=== PATIENT | male | born 1945 | race Caucasian/White ===

== ENCOUNTER 2021-03-30 04:33 | Inpatient (IN) | payer MEDICARE, OTHER ==
[~2021-03-30] VITALS: Ht 180.3 cm; Wt 129.4 kg
[2021-03-30] MEDS ORDERED: XARELTO20 MG PO (11:07)
[2021-03-30] MEDS ORDERED: LASIX40 MG PO (11:08)
[2021-03-30] MEDS ORDERED: HYDROXYZINE HCL25 MG PO (11:08)
[2021-03-30] MEDS ORDERED: HYDROCODON-ACE1 EAC6 PO (11:09)
[2021-03-30] MEDS ORDERED: PROAIR HFA8.5 GM INH (11:09)
[2021-03-30] MEDS ORDERED: ASMANEX HFA13 GM INH (11:11)
[2021-03-30] MEDS ORDERED: STIOLTO RESPIMAT4 GM INH (11:11)
[2021-03-30] MEDS ORDERED: METHOTREXATE T2.5 MG PO (11:12)
[2021-03-30] MEDS ORDERED: FOLIC ACID 1 MG1 MG PO (11:12)
[2021-03-30] MEDS ORDERED: CLARITIN10 MG PO (11:13)
[2021-03-30] MEDS ORDERED: LIPITOR40 MG PO (11:13)
[2021-03-30] MEDS ORDERED: NITROSTAT0.4 MG SL (11:14)
[2021-03-30] MEDS ORDERED: KENALOG CR 0.0215 GM TOP (13:01)
[2021-03-30] MEDS ORDERED: LINZESS145 MCG PO (13:04)
[2021-03-31 03:17] LABS: HEMOGLOBIN 14.4 gm/dl (14.0-17.5); RED BLOOD COUNT 4.08 M/UL (4.20-5.50); WHITE BLOOD COUNT 11.3 K/UL (4.5-11.0)
[2021-03-31 03:29] LABS: BUN/CREATININE RATIO 21 (0-10)
--- NOTE | 2021-03-31 08:27 | NUR ---
SPOKE WITH [facility] RE TRANSPORTING PT TO [facility] AND DISPATCH STATES WILL HAVE TO CALL BACK
[2021-04-01 03:44] LABS: HEMOGLOBIN 14.1 gm/dl (14.0-17.5); RED BLOOD COUNT 4.02 M/UL (4.20-5.50)
[2021-04-01 03:46] LABS: WHITE BLOOD COUNT 16.9 K/UL (4.5-11.0)
[2021-04-01 04:35] LABS: BUN/CREATININE RATIO 27 (0-10)
[2021-04-02 05:12] LABS: HEMOGLOBIN 14.6 gm/dl (14.0-17.5); RED BLOOD COUNT 4.39 M/UL (4.20-5.50)
[2021-04-02 05:30] LABS: BUN/CREATININE RATIO 33 (0-10)
[2021-04-03 04:56] LABS: HEMOGLOBIN 15.3 gm/dl (14.0-17.5); RED BLOOD COUNT 4.38 M/UL (4.20-5.50)
[2021-04-03 04:59] LABS: WHITE BLOOD COUNT 12.4 K/UL (4.5-11.0)
[2021-04-03 05:14] LABS: BUN/CREATININE RATIO 28 (0-10)
[2021-04-04 07:24] LABS: RED BLOOD COUNT 4.36 M/UL (4.20-5.50); WHITE BLOOD COUNT 15.1 K/UL (4.5-11.0)
[2021-04-04 07:38] LABS: BUN/CREATININE RATIO 33 (0-10)
[2021-04-05 04:16] LABS: RED BLOOD COUNT 4.51 M/UL (4.20-5.50); WHITE BLOOD COUNT 15.6 K/UL (4.5-11.0)
[2021-04-05 04:29] LABS: BUN/CREATININE RATIO 27 (0-10)
[2021-04-06 10:22] LABS: HEMOGLOBIN 16.9 gm/dl (14.0-17.5); RED BLOOD COUNT 4.69 M/UL (4.20-5.50); WHITE BLOOD COUNT 19.1 K/UL (4.5-11.0)
[2021-04-06 10:55] LABS: BUN/CREATININE RATIO 31 (0-10)
[2021-04-06] MEDS ORDERED: NYSTOP60 GM EXT (18:06)
[2021-04-06] MEDS ORDERED: LOTRIMIN CREAM15 GM TOP (18:06)
[2021-04-06] MEDS ORDERED: MEDROL DOSEPAK 24 MG PO (18:06)
[2021-04-06] MEDS ORDERED: DOXYCYCLINE HY100 M2 PO (18:06)
== END 2021-04-06 19:50 | disposition home or self-care (01) | DRG 291 ==
LOC: PROG CARE 04:33 → MED SURG 4 10:24 → PROG CARE 10:24 → MED SURG 4 04-01 14:41
PROVIDERS: Internal Medicine; Physician Assistant Medical; ADMIT Internal Medicine
PROC: B24BZZ4 Ultrasonography of Heart with Aorta, Transesophageal (ICD-10-PCS; principal; 2021-03-30)
DX: I11.0 Hypertensive heart disease with heart failure (principal); J96.21 Acute and chronic respiratory failure with hypoxia; J96.01 Acute respiratory failure with hypoxia; J96.22 Acute and chronic respiratory failure with hypercapnia; J44.1 Chronic obstructive pulmonary disease with (acute) exacerbation; E66.2 Morbid (severe) obesity with alveolar hypoventilation; E87.4 Mixed disorder of acid-base balance; I50.33 Acute on chronic diastolic (congestive) heart failure; Z20.822 Contact with and (suspected) exposure to COVID-19; I25.10 Atherosclerotic heart disease of native coronary artery without angina pectoris; K21.9 Gastro-esophageal reflux disease without esophagitis; M06.9 Rheumatoid arthritis, unspecified; I45.10 Unspecified right bundle-branch block; E78.5 Hyperlipidemia, unspecified; N40.0 Benign prostatic hyperplasia without lower urinary tract symptoms; F43.10 Post-traumatic stress disorder, unspecified; I07.1 Rheumatic tricuspid insufficiency; F17.210 Nicotine dependence, cigarettes, uncomplicated; I25.2 Old myocardial infarction; Z88.6 Allergy status to analgesic agent; Z88.8 Allergy status to other drugs, medicaments and biological substances; Z79.82 Long term (current) use of aspirin; Z79.01 Long term (current) use of anticoagulants; Z99.81 Dependence on supplemental oxygen; Z68.35 Body mass index [BMI] 35.0-35.9, adult
CPT/HCPCS: ECHO; 36415; 36600; 71045; 71046; 80048; 80053; 82607; 82746; 82803; 83605; 83735; 83880; 84439; 84443; 85025; 85027; 85652; 93306; 94640; 94660; 94664; 94760; 97116-GP-CQ; 97161; J0696; J1940; J2930

== ENCOUNTER 2021-04-21 05:29 | Inpatient (IN) | payer MEDICARE, OTHER ==
[~2021-04-21] VITALS: Ht 180.3 cm; Wt 122.9 kg
[~2021-04-21 05:29] MED LIST: ASMANEX HFA13 GM INH; CLARITIN10 MG PO; DOXYCYCLINE HY100 M2 PO; FOLIC ACID 1 MG1 MG PO; HYDROCODON-ACE1 EAC6 PO; HYDROXYZINE HCL25 MG PO; KENALOG CR 0.0215 GM TOP; LASIX40 MG PO; LINZESS145 MCG PO; LIPITOR40 MG PO; LOTRIMIN CREAM15 GM TOP; MEDROL DOSEPAK 24 MG PO; METHOTREXATE T2.5 MG PO; NITROSTAT0.4 MG SL; NYSTOP60 GM EXT; PROAIR HFA8.5 GM INH; STIOLTO RESPIMAT4 GM INH; XARELTO20 MG PO
[2021-04-21 06:44] LABS: HEMOGLOBIN 14.6 gm/dl (14.0-17.5); RED BLOOD COUNT 4.16 M/UL (4.20-5.50); WHITE BLOOD COUNT 8.8 K/UL (4.5-11.0)
[2021-04-21 07:18] LABS: BUN/CREATININE RATIO 16 (0-10)
[2021-04-21] MEDS ORDERED: POTASSIUM CHLO20 ME1 PO (16:18)
[2021-04-22 05:53] LABS: RED BLOOD COUNT 3.79 M/UL (4.20-5.50); WHITE BLOOD COUNT 9.3 K/UL (4.5-11.0)
[2021-04-23 05:08] LABS: HEMOGLOBIN 12.2 gm/dl (14.0-17.5); RED BLOOD COUNT 3.54 M/UL (4.20-5.50); WHITE BLOOD COUNT 9.5 K/UL (4.5-11.0)
[2021-04-23 05:37] LABS: BUN/CREATININE RATIO 31 (0-10)
[2021-04-24 06:27] LABS: HEMOGLOBIN 12.6 gm/dl (14.0-17.5); RED BLOOD COUNT 3.66 M/UL (4.20-5.50); WHITE BLOOD COUNT 8.7 K/UL (4.5-11.0)
[2021-04-24 06:57] LABS: BUN/CREATININE RATIO 26 (0-10)
[2021-04-25 03:41] LABS: HEMOGLOBIN 13.2 gm/dl (14.0-17.5); RED BLOOD COUNT 3.83 M/UL (4.20-5.50); WHITE BLOOD COUNT 9.2 K/UL (4.5-11.0)
[2021-04-25 03:57] LABS: BUN/CREATININE RATIO 25 (0-10)
--- NOTE | 2021-04-25 11:06 | NUR ---
PATIENT CALLED STATING SHE HAS SCABES AND FEELS THE PATIENT DOES TOO. CALLED MD GARCIA WITH THIS INFORMATION
[2021-04-26 03:11] LABS: HEMOGLOBIN 13.5 gm/dl (14.0-17.5); RED BLOOD COUNT 3.91 M/UL (4.20-5.50); WHITE BLOOD COUNT 8.9 K/UL (4.5-11.0)
[2021-04-26 03:37] LABS: BUN/CREATININE RATIO 28 (0-10)
--- NOTE | 2021-04-26 16:34 | NUR ---
PATIENT AWAKENS HR 120, B/P 144/90. CALL MD GARCIA FOR MEDICATION TO TREAT. METOPROLOL 25MG X 1 GIVEN. WILL CONTINUE TO MONITOR
[2021-04-27 05:45] LABS: HEMOGLOBIN 13.6 gm/dl (14.0-17.5); RED BLOOD COUNT 3.9 M/UL (4.20-5.50); WHITE BLOOD COUNT 11.3 K/UL (4.5-11.0)
[2021-04-27 06:48] LABS: BUN/CREATININE RATIO 29 (0-10)
[2021-04-27] MEDS ORDERED: ASPIRIN EC81 MG PO (12:37)
[2021-04-27] MEDS ORDERED: ACETAZOLAMIDE250 MG PO (12:37)
[2021-04-27] MEDS ORDERED: LOPRESSOR 25 MG25 MG PO (12:37)
[2021-04-27] MEDS ORDERED: LOTRISONE CREAM15 GM TOP (12:37)
[2021-04-27] MEDS ORDERED: MEDROL4 MG PO (12:37)
--- NOTE | 2021-04-27 13:53 | NUR ---
REPORT CALLED TO SORIN TRIANA FOR TRANSFER TO [id number]
[2021-04-28 06:46] LABS: HEMOGLOBIN 13.4 gm/dl (14.0-17.5); RED BLOOD COUNT 3.86 M/UL (4.20-5.50)
[2021-04-28 06:48] LABS: WHITE BLOOD COUNT 16.7 K/UL (4.5-11.0)
[2021-04-28 07:19] LABS: BUN/CREATININE RATIO 25 (0-10)
[2021-04-29 06:54] LABS: HEMOGLOBIN 13.5 gm/dl (14.0-17.5); RED BLOOD COUNT 3.9 M/UL (4.20-5.50); WHITE BLOOD COUNT 20.4 K/UL (4.5-11.0)
[2021-04-29 07:26] LABS: BUN/CREATININE RATIO 24 (0-10)
[2021-04-30 05:27] LABS: HEMOGLOBIN 13.6 gm/dl (14.0-17.5); RED BLOOD COUNT 3.96 M/UL (4.20-5.50); WHITE BLOOD COUNT 16.1 K/UL (4.5-11.0)
[2021-04-30 05:57] LABS: BUN/CREATININE RATIO 25 (0-10)
[2021-04-30] MEDS ORDERED: ACETAZOLAMIDE250 MG PO (10:53)
[2021-04-30] MEDS ORDERED: FAMOTIDINE20 MG PO (10:53)
[2021-04-30] MEDS ORDERED: LOPRESSOR 25 MG25 MG PO (10:53)
[2021-04-30] MEDS ORDERED: LANTISEPTIC TP (11:02)
[2021-04-30] MEDS ORDERED: MILLIPRED5 MG PO (11:02)
[2021-04-30] MEDS ORDERED: IPRAT-ALBUT 0.5-3 ML NEB (11:02)
== END 2021-04-30 14:20 | disposition home or self-care (01) | DRG 189 ==
LOC: ER1 05:29 → CDU 10:23 → M/S 10:23 → PROG CARE 04-24 11:10 → M/S 04-27 14:34
PROVIDERS: Family Medicine; Internal Medicine; Physician Assistant; ADMIT Internal Medicine
DX: J96.21 Acute and chronic respiratory failure with hypoxia (principal); N17.9 Acute kidney failure, unspecified; I50.32 Chronic diastolic (congestive) heart failure; I48.92 Unspecified atrial flutter; J44.1 Chronic obstructive pulmonary disease with (acute) exacerbation; E66.2 Morbid (severe) obesity with alveolar hypoventilation; J96.22 Acute and chronic respiratory failure with hypercapnia; I25.10 Atherosclerotic heart disease of native coronary artery without angina pectoris; E87.5 Hyperkalemia; I11.0 Hypertensive heart disease with heart failure; F17.210 Nicotine dependence, cigarettes, uncomplicated; F43.10 Post-traumatic stress disorder, unspecified; E78.5 Hyperlipidemia, unspecified; I07.1 Rheumatic tricuspid insufficiency; Z20.822 Contact with and (suspected) exposure to COVID-19; K21.9 Gastro-esophageal reflux disease without esophagitis; M06.9 Rheumatoid arthritis, unspecified; I44.7 Left bundle-branch block, unspecified; N40.0 Benign prostatic hyperplasia without lower urinary tract symptoms; Z63.1 Problems in relationship with in-laws; Z79.82 Long term (current) use of aspirin; Z79.52 Long term (current) use of systemic steroids; Z95.5 Presence of coronary angioplasty implant and graft; Z98.890 Other specified postprocedural states; Z88.7 Allergy status to serum and vaccine; Z88.8 Allergy status to other drugs, medicaments and biological substances; Z79.01 Long term (current) use of anticoagulants; Z82.49 Family history of ischemic heart disease and other diseases of the circulatory system; Z83.3 Family history of diabetes mellitus; I25.2 Old myocardial infarction; Z99.81 Dependence on supplemental oxygen
CPT/HCPCS: 36415; 36600; 71045; 71046; 80048; 80053; 80202; 82550; 82553; 82607; 82746; 82803; 83605; 83735; 83874; 83880; 84484; 85025; 85027; 87040; 93005; 94640; 94660; 94664; 94760; 96374; 96375; 97110-GP-CQ; 97116-GP-CQ; 97162; 97166; 97530-GP-CQ; 99285; G0378; J0692; J0696; J1120; J1200; J1205; J1940; J2920; J2930; J3370; J3486; J7030; J7070; Q0177; U0002

== ENCOUNTER → 2021-05-17 | Outpatient (CLI) | payer MEDICARE, OTHER ==
[~2021-05-17] MED LIST changes: +ACETAZOLAMIDE250 MG PO; +ASPIRIN EC81 MG PO; +FAMOTIDINE20 MG PO; +IPRAT-ALBUT 0.5-3 ML NEB; +LANTISEPTIC TP; +LOPRESSOR 25 MG25 MG PO; +LOTRISONE CREAM15 GM TOP; +MEDROL4 MG PO; +MILLIPRED5 MG PO; +POTASSIUM CHLO20 ME1 PO
== END ==
LOC: HEART 5 08:46
DX: J44.9 Chronic obstructive pulmonary disease, unspecified (principal); I50.9 Heart failure, unspecified
CPT/HCPCS: 71046; 94060; 94729

== ENCOUNTER → 2021-06-26 | Outpatient (CLI) | payer MEDICARE, OTHER | LOC: RT 11:57 | DX: R09.02 Hypoxemia (principal); Z99.81 Dependence on supplemental oxygen | CPT/HCPCS: 36600; 82803 ==